=== PATIENT | female | born 1995 | race Caucasian/White ===

== ENCOUNTER 2019-08-06 00:26 | Emergency (ER) | payer BC, OTHER ==
[~2019-08-06] VITALS: Ht 162 cm; Wt 100.0 kg
--- NOTE | 2019-08-06 00:48 | ED Chest Pain ---
General Stated Complaint: CP Source: patient Exam Limitations: no limitations (KATHIA OSORIO STUDENT) History of Present Illness Date Seen by Provider: Aug 06, 2019 Time Seen by Provider: 00:35 Initial Comments Patient presents today with an hour long history of chest pain. She states the pain starts at the sternum and radiates into both breasts. Patient claims she ate ice cream less than 30 minutes prior to laying down for the evening and the pain began while laying in bed. She also claims that she has intermittent shortness of breath that accompanies the chest pain. 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 Additionally reports that she felt like she had food poisoning last night and had diarrhea several times and then had a few episodes of vomiting today. Feeling a little better tonight but then worse after eating ice cream. States pain started epigastric after having some pain and cramping below the diaphragm all day. It radiated up into the chest and across afterwards. Timing/Duration: 24 hours Severity/Quality: ingestion Location: epigastric Radiation: other (both breasts) Prior CP/Workup: no prior chest pain, no prior cardiac workup ASA po SPRAY BOOTH OPERATOR: No NTG SL SPRAY BOOTH OPERATOR: No Associated Symptoms: abdominal pain; No back pain, No diaphoresis, No dizziness; heartburn, nausea/vomiting, shortness of breath; No weakness (KANA CARDONA MD) Allergies and Home Medications Allergies Coded Allergies: No Known Drug Allergies (Unverified , 08/06/19) Patient Home Medication List Home Medication List Reviewed: Yes (KANA CARDONA MD) Review of Systems Review of Systems Constitutional: no symptoms reported EENTM: No Symptoms Reported Respiratory: See HPI Cardiovascular: See HPI Gastrointestinal: No Symptoms Reported Genitourinary: No Symptoms Reported Musculoskeletal: no symptoms reported Skin: no symptoms reported Psychiatric/Neurological: No Symptoms Reported Endocrine: No Symptoms Reported Hematologic/Lymphatic: No Symptoms Reported (KATHIA OSORIO STUDENT) Constitutional: no symptoms reported EENTM: No Symptoms Reported Respiratory: See HPI Cardiovascular: See HPI; Denies Palpitations Gastrointestinal: Abdominal Pain, Diarrhea, Nausea, Vomiting Genitourinary: No Symptoms Reported Musculoskeletal: no symptoms reported (KANA CARDONA MD) All Other Systems Reviewed Negative Unless Noted: Yes (KANA CARDONA MD) Past Itgcljs-Vfgouo-Dxxhsk Hx Past Med/Social Hx: Reviewed Nursing Past Med/Soc Hx (KANA CARDONA MD) Patient Social History Recent Foreign Travel: No Contact w/Someone Who Travel: No (KATHIA OSORIO STUDENT) Alcohol Use: Occasionally Uses Recreational Drug Use: No Smoking Status: Never a Smoker (KANA CARDONA MD) Past Medical History Surgeries: No Respiratory: No Cardiac: No Neurological: No (KANA CARDONA MD) Family Medical History Reviewed Nursing Family Hx (KANA CARDONA MD) No Pertinent Family Hx (KANA CARDONA MD) Physical Exam Vital Signs Capillary Refill : (KATHIA OSORIO STUDENT) Height, Weight, BMI Height: '" Weight: lbs. oz. kg; BMI Method: General Appearance: No Apparent Distress HEENT: PERRL/EOMI, Pharynx Normal Respiratory: Chest Non Tender, Lungs Clear, Normal Breath Sounds, No Accessory Muscle Use, No Respiratory Distress Cardiovascular: Regular Rate, Rhythm, No Edema, No Gallop, No JVD, No Murmur, Normal Peripheral Pulses Gastrointestinal: Normal Bowel Sounds, No Organomegaly, No Pulsatile Mass, Non Tender, Soft Extremity: Normal Capillary Refill, Normal Inspection, Non Tender, No Calf Tenderness Neurologic/Psychiatric: Alert, Oriented x3, Normal Mood/Affect Skin: Normal Color, Warm/Dry Lymphatic: No Adenopathy (KATHIA OSORIO STUDENT) General Appearance: No Apparent Distress, WD/WN HEENT: PERRL/EOMI, Pharynx Normal Neck: Non Tender, Supple Respiratory: Lungs Clear, Normal Breath Sounds Cardiovascular: Regular Rate, Rhythm, No Murmur Gastrointestinal: Normal Bowel Sounds, No Organomegaly, No Pulsatile Mass, Non Tender, Soft Extremity: Normal Inspection, Normal Range of Motion, Non Tender, No Calf Ten derness Neurologic/Psychiatric: Alert, Oriented x3 Skin: Normal Color, Warm/Dry (KANA CARDONA MD) Progress/Results/Core Measures Results/Orders Lab Results Laboratory Tests Test 08/06/19 01:18 Range/Units White Blood Count 10.9 4.3-11.0 10^3/uL Red Blood Count 4.75 4.35-5.85 10^6/uL Hemoglobin 13.7 11.5-16.0 G/DL Hematocrit 42 35-52 % Mean Corpuscular Volume 88 80-99 FL Mean Corpuscular Hemoglobin 29 25-34 PG Mean Corpuscular Hemoglobin Concent 33 32-36 G/DL Red Cell Distribution Width 13.3 10.0-14.5 % Platelet Count 327 130-400 10^3/uL Mean Platelet Volume 8.6 7.4-10.4 FL Neutrophils (%) (Auto) 82 H 42-75 % Lymphocytes (%) (Auto) 11 L 12-44 % Monocytes (%) (Auto) 7 0-12 % Eosinophils (%) (Auto) 0 0-10 % Basophils (%) (Auto) 0 0-10 % Neutrophils # (Auto) 9.0 H 1.8-7.8 X 10^3 Lymphocytes # (Auto) 1.2 1.0-4.0 X 10^3 Monocytes # (Auto) 0.8 0.0-1.0 X 10^3 Eosinophils # (Auto) 0.0 0.0-0.3 10^3/uL Basophils # (Auto) 0.0 0.0-0.1 10^3/uL Sodium Level 137 135-145 MMOL/L Potassium Level 3.7 3.6-5.0 MMOL/L Chloride Level 106 98-107 MMOL/L Carbon Dioxide Level 20 L 21-32 MMOL/L Anion Gap 11 5-14 MMOL/L Blood Urea Nitrogen 9 7-18 MG/DL Creatinine 0.76 0.60-1.30 MG/DL Estimat Glomerular Filtration Rate > 60 BUN/Creatinine Ratio 12 Glucose Level 116 H 70-105 MG/DL Calcium Level 9.3 8.5-10.1 MG/DL Corrected Calcium 9.1 8.5-10.1 MG/DL Total Bilirubin 0.5 0.1-1.0 MG/DL Aspartate Amino Transf (AST/SGOT) 12 5-34 U/L Alanine Aminotransferase (ALT/SGPT) 27 0-55 U/L Alkaline Phosphatase 78 40-136 U/L Troponin I < 0.028 <0.028 NG/ML Total Protein 7.5 6.4-8.2 GM/DL Albumin 4.2 3.2-4.5 GM/DL Lipase 14 8-78 U/L (KANA CARDONA MD) My Orders Orders - KANA CARDONA MD Lidocaine 2% Viscous 15 Ml (Xylocaine Vi (08/06/19 01:15) Antacid Suspension (Mylanta Suspension (08/06/19 01:15) Lactated Ringers (Lr 1000 Ml Iv Solution (08/06/19 01:07) Cbc With Automated Diff (08/06/19 01:07) Comprehensive Metabolic Panel (08/06/19 01:07) Lipase (08/06/19 01:07) Troponin I (08/06/19 01:07) Ekg Tracing (08/06/19 01:08) Famotidine Injection (Pepcid Injection) (08/06/19 01:27) (KANA CARDONA MD) Medications Given in ED Current Medications Medications Dose Ordered Sig/Marie Route Start Time Stop Time Status Last Admin Dose Admin Al Hydrox/Mg Hydrox/Simethicone 30 ml ONCE ONCE PO 08/06/19 01:15 08/06/19 01:16 DC 08/06/19 01:46 30 ML Lidocaine HCl 15 ml ONCE ONCE PO 08/06/19 01:15 08/06/19 01:16 DC 08/06/19 01:46 15 ML (KANA CARDONA MD) Progress Progress Note : Progress Note Seen and evaluated. IV, labs, normal saline 1 L bolus, EKG and GI cocktail ordered. Pepcid 20 mg IV ordered. Monitor patient. 0228: Overall much improved. No significant findings on labs. Discharged home with return precautions. Patient verbalize understanding instructions and agreement with plan. (KANA CARDONA MD) Initial ECG Impression Date: Aug 06, 2019 Initial ECG Impression Time: 00:46 Initial ECG Rate: 80 Initial ECG Rhythm: Normal Sinus Initial ECG Impression: Normal Initial ECG Comparisson: No Previous ECG Available Comment Sinus rhythm with normal axis. Left atrial abnormality. No evidence of ST elevation MD. No previous available for comparison. Interpreted by me. (KANA CARDONA MD) Departure Impression Primary Impression: Epigastric abdominal pain Additional Impression: Nausea and vomiting Qualified Codes: R11.2 - Nausea with vomiting, unspecified Disposition: 01 HOME, SELF-CARE Condition: Improved Departure-Patient Inst. Decision time for Depature: 02:29 (KANA CARDONA MD) Referrals: NO,LOCAL PHYSICIAN (PCP/Family) Primary Care Physician Patient Instructions: Chest Pain (DC), Acute Abdomen (Belly Pain), Nausea and Vomiting, Adult Add. Discharge Instructions: Clear liquid diet for the next 24 hours and then advance as tolerated. Start light and then advance as you're able to. You may take [id number] Pepcid or the generic famotidine 20 mg twice daily for the next few days and then once daily thereafter as needed to prevent stomach upset. Follow-up with your Dr. in a few days for recheck. Return for worse pain, fever, vomiting, weakness, breathing problems or other concerns as needed. KATHIA OSORIO STUDENT Aug 06, 2019 00:48 KANA CARDONA MD Aug 06, 2019 01:26
[2019-08-06] MEDS ORDERED: LACTATED RINGERS 1,000 ML IV STA (01:07)
[2019-08-06] MEDS ORDERED: ANTACID SUSP 30 ML UDC (MYLANTA) PO ONE (01:15)
[2019-08-06] MEDS ORDERED: LIDOCAINE 2% VISCOUS 15 ML UDC PO ONE (01:15)
[2019-08-06 01:25] LABS: BASOPHILS % (AUTO) 0 % (0-10); EOSINOPHILS % (AUTO) 0 % (0-10); HEMATOCRIT 42 % (35-52); HEMOGLOBIN 13.7 G/DL (11.5-16.0); LYMPHOCYTES # (AUTO) 1.2 X 10^3 (1.0-4.0); LYMPHOCYTES % (AUTO) 11 % (12-44); MEAN CORPUSCULAR HEMOGLOBIN 29 PG (25-34); MEAN CORPUSCULAR HGB CONC 33 G/DL (32-36); MEAN CORPUSCULAR VOLUME 88 FL (80-99); MEAN PLATELET VOLUME 8.6 FL (7.4-10.4); MONOCYTES # (AUTO) 0.8 X 10^3 (0.0-1.0); MONOCYTES % (AUTO) 7 % (0-12); NEUTROPHILS % (AUTO) 82 % (42-75); PLATELET COUNT 327 10^3/uL (130-400); RED CELL DISTRIBUTION WIDTH 13.3 % (10.0-14.5); WHITE BLOOD COUNT 10.9 10^3/uL (4.3-11.0)
[2019-08-06] MEDS ORDERED: FAMOTIDINE 20MG/2ML IV (PEPCID) IV STA (01:27)
[2019-08-06 01:46] LABS: ALANINE AMINOTRANSFERASE 27 U/L (0-55); ALBUMIN 4.2 GM/DL (3.2-4.5); ALKALINE PHOSPHATASE 78 U/L (40-136); BILIRUBIN,TOTAL 0.5 MG/DL (0.1-1.0); BUN/CREATININE RATIO 12; CALCIUM 9.3 MG/DL (8.5-10.1); CARBON DIOXIDE 20 MMOL/L (21-32); CHLORIDE 106 MMOL/L (98-107); CREATININE SERUM 0.76 MG/DL (0.60-1.30); GFR ESTIMATED > 60; GLUCOSE 116 MG/DL (70-105); LIPASE 14 U/L (8-78); POTASSIUM 3.7 MMOL/L (3.6-5.0); SODIUM 137 MMOL/L (135-145); TOTAL PROTEIN 7.5 GM/DL (6.4-8.2)
[2019-08-06 02:38] VITALS: BP 138/82
== END 2019-08-06 02:40 | disposition home or self-care (01) ==
LOC: ER 00:29
DX: R10.13 Epigastric pain (principal); R11.2 Nausea with vomiting, unspecified
CPT/HCPCS: 36415; 80053; 83690; 84484; 85025; 93005